=== PATIENT | female | born 1985 | race Caucasian/White ===

== ENCOUNTER 2025-07-21 20:44 | Emergency (ER) | payer OTHER, SELFPAY ==
[2025-07-21 20:52] VITALS: BP 128/86; PULSE 99; RESP 16; TEMP 36.9; O2SAT 100
--- NOTE | 2025-07-21 21:12 | PC.NURSE ---
This RN attempted IV in Right forearm but was unsuccessful. pt refused IV or blood work after. no blood work was obtained.
--- NOTE | 2025-07-21 21:41 | ED.WOUNDLAC ---
HPI - Wound/Laceration General Chief Complaint: Wound/Laceration Stated Complaint: infected wound left wrist Time Seen by Provider: 07/21/25 21:15 History of Present Illness HPI narrative: Patient is a 39-year-old female who presents to the ER with a left inner wrist abscess. She reports she was handcuffed 2 days ago for approximately 6 hours. Patient reports there was a scratch on her wrist after the handcuffs removed, but it has since developed into an abscess. She endorses decreased range of motion due to pain. Patient endorses some slight streaking up her arm. She endorses a history of IV drug use and endocarditis. Patient denies any recent fevers, drainage from the site, pain with finger movement. Related Data Allergies Allergy/AdvReac Type Severity Reaction Status Date / Time lamotrigine (From Lamictal) AdvReac Intermediate red man Verified 07/21/25 20:47 syndrome vancomycin AdvReac red man Verified 07/21/25 20:47 syndrome Review of Systems Review of Systems: All systems reviewed & are unremarkable except as noted in HPI and below Exam Narrative: GENERAL: Well appearing, well-nourished, non-toxic, in no acute distress. HEAD: Normocephalic, atraumatic. NECK: Supple. No adenopathy, no masses. RESPIRATORY: Airway patent, respirations nonlabored. Clear to auscultation bilaterally, no rales, rhonchi, wheezing. CARDIOVASCULAR: Regular rate and rhythm without murmurs, rubs, or gallops. Peripheral pulses 2+ and equal bilaterally. ABDOMINAL: Soft, nontender, nondistended, no hepatosplenomegaly. Normoactive BS. MUSCULOSKELETAL: Moves all extremities. Strength/ROM intact without gross deformities. SKIN: Warm, dry, normal color. No rashes. Approximately dime-sized abscess to patient's left inner wrist, no visible drainage but fluid under the skin appears NEURO: A&O X3. Speech clear. Cranial nerves II-XII intact. No ataxic movements. PSYCHIATRIC: Appropriate mood and affect. Normal interaction. Course Vital Signs Vital signs: Vital Signs Temperature 36.9 C 07/21/25 20:52 Pulse Rate 99 07/21/25 20:52 Respiratory Rate 16 07/21/25 20:52 Blood Pressure 128/86 07/21/25 20:52 Pulse Oximetry 100 07/21/25 20:52 Oxygen Delivery Room Air 07/21/25 20:52 Temperature 36.9 C 07/21/25 20:52 Pulse Rate 99 07/21/25 20:52 Respiratory Rate 16 07/21/25 20:52 Blood Pressure 128/86 07/21/25 20:52 Pulse Oximetry 100 07/21/25 20:52 Oxygen Delivery Room Air 07/21/25 20:52 MDM - Wound/Laceration MDM Narrative Medical decision making narrative: Patient is a 39-year-old female who presents to the ER with a left inner wrist abscess. She reports she was handcuffed 2 days ago for approximately 6 hours. Patient reports there was a scratch on her wrist after the handcuffs removed, but it has since developed into an abscess. She endorses decreased range of motion due to pain. Patient endorses some slight streaking up her arm. She endorses a history of IV drug use and endocarditis. Patient denies any recent fevers, drainage from the site, pain with finger movement. Labs Ordered: CBC CMP, lactic acid (patient adamantly refused), aerobic/anaerobic culture Medications Ordered: Bactrim p.o. Diagnosis: Left wrist abscess Patient Education/Shared MDM: It was strongly advised patient have blood work drawn and IV antibiotics administered due to her history of endocarditis. Patient allowed nurse to attempt to place an IV once but then refused any further IV attempts. She begged [employer]IST to allow her to trial oral antibiotics at home before further blood work was drawn. She declines pain medication administration. Patient strongly advised to maintain hydration status upon discharge and follow-up with her PCP as soon as possible to ensure her wound is healing. She reports her abscess started draining prior to discharge so a culture was obtained. Patient will be discharged home with a prescription for Bactrim p.o. Strict return precautions provided. Patient verbalized understanding and is in agreement with plan. Vital signs stable at time of discharge. All questions answered. Differential Diagnosis Differential diagnosis: Likely abscess, abrasion and other (Sepsis, MRSA) Discharge Plan Discharge Clinical Impression: Abscess Patient Disposition: Home Condition: Guarded Prognosis Instructions: Antibiotic Form, Abscess (ED) Additional Instructions: Please return to the ER with any worsening symptoms, including fevers, increased red streaking, increased pain, decreased range of motion. Follow-up with primary care provider as soon as possible for wound re-evaluation. Take all medications as prescribed, including regularly scheduled medications. Complete your full dose of antibiotics. You may use Tylenol and/or ibuprofen for pain control. Patient Language: Moh[place] Prescriptions: New sulfamethoxazole-trimethoprim [Bactrim DS] 800-160 mg tablet 1 tablet PO Q12H 7 Days Qty: 14 0RF Follow-up/Referrals: Snow Cervantes DO [Physician, Family Practice] Referral Note: primary care provider PHYSICIAN,FITTER TACKER [Primary Care Provider, Internal Medicine] Stand Alone Forms: Work/School Release IP Time of Disposition: 22:21
[2025-07-21] MEDS: SULFAMETHOXAZOLE/TRIMETHOPRIM 800/160 MG DS TABLET 1 TAB PO (21:50)
[2025-07-21 22:37] VITALS: BP 136/91; PULSE 73; RESP 19; O2SAT 100
== END 2025-07-21 22:38 | disposition home or self-care (01) ==
PROVIDERS: Emergency Provider Registered Nurse
DX: L02.414 Cutaneous abscess of left upper limb (principal); I38 Endocarditis, valve unspecified
CPT/HCPCS: 87070; 87075; 87186; 99283; A9270